=== PATIENT | female | born 1945 | race Asian ===

== ENCOUNTER 2024-08-12 11:13 | Emergency (ER) | payer MEDICARE, MEDICAID, SELFPAY ==
[2024-08-12 11:14] VITALS: BMI 21.2
[2024-08-12 11:25] VITALS: BP 133/62; PULSE 75; RESP 17; TEMP 36.7; O2SAT 99; BMI 23.3
--- NOTE | 2024-08-12 11:25 | PC.NURSE ---
Pt coming from the lobby with daughter; pt c/o R-sided numbness/pain that starts from R arm all the way down to her R foot. Per pt, only PMH is TIA 1 year ago and takes aspirin and allergy medication. Pt attached to monitors at this time.
--- NOTE | 2024-08-12 11:27 | PD.EDRME ---
Rapid Medical Screening Exam RME Arrival date/time: 08/12/24 11:13 79-year-old female presents to the emergency department with a 6-day history of right sided body pain and weakness. Sent over by her PCP for evaluation. I have greeted and performed a focused initial assessment of this patient. Initial appropriate labs ordered at this time. A comprehensive ED assessment and evaluation of the patient and analysis of all test and completion of medical decision making process will be conducted by additional ED provider. Chief Complaint: Neuro Symptoms/Deficit Time Seen by Provider: 08/12/24 11:27 Vital signs: Vital Signs Temperature 98.1 F 08/12/24 11:25 Pulse Rate 75 08/12/24 11:25 Respiratory Rate 17 08/12/24 11:25 Blood Pressure 133/62 H 08/12/24 11:25 Pulse Oximetry (%) 99 08/12/24 11:25 Oxygen Delivery Method Room Air 08/12/24 11:25
--- NOTE | 2024-08-12 11:33 | EKG_ITS ---
[facility] Test Date: 2024-08-12 Pat Name: EVAN ANTONIO Department: Room: - Gender: Female Steward/Stewardess Second Class: : 1945 Requested By: ED Temporary Provider Order Number: [id number] Reading MD: ED Temporary Provider Measurements Intervals [place] Rate: 75 P: 54 PA: 179 QRS: 42 QRSD: 88 T: 60 QT: 374 QTc: 418 Interpretive Statements SINUS RHYTHM No previous ECG available for comparison /store/S0/[id number]/[id number].pdf
--- NOTE | 2024-08-12 11:53 | XR_ITS ---
Examination: CT brain head without contrast. 2-D sagittal coronal reconstructions Date and time of exam:August 12, 2024 1304 hrs. Indications: Onset right-sided body weakness beginning 6 days ago CTDI: vol (mGy):46.7 DLP: (mGycm):922 Technique: Multiple CT axial sections of the brain have been obtained, 5 mm slice thickness. Contrast has not been administered. 2-D sagittal, coronal reconstructions have been obtained Low dose protocols were performed. One or more of the following dose reduction techniques were used; automated exposure control, adjustment of the mA and/or KV according to patient size, use of iterative reconstruction technique. Findings: No significant ventricular enlargement. Intra-axial or extra-axial hemorrhage density is not seen. No mass effect or midline shift Basal cisterns are not remarkable. Fourth ventricle is midline. Cranial vault intact. Impression: Negative for acute hemorrhage, mass effect or midline shift Advise clinical correlation follow-up accordingly
--- NOTE | 2024-08-12 11:53 | XR_ITS ---
Examination: AP chest single view Technique: AP portable sitting chest single view Exam date and time: August 12, 2024 1201 hrs. Comparison January 01, 2014 Indications: Onset chest pain today. Findings: Normal heart size Mild vascular congestion. No lobar pneumonia or pulmonary edema Impression: Mild vascular congestion
--- NOTE | 2024-08-12 11:55 | EDNOTE_ITS ---
Neuro Symptoms Deficit-RME/HPI General Chief Complaint: Neuro Symptoms/Deficit Stated Complaint: RIGHT SIDE OF BODY PAIN/NUMBNESS X6DAYS Time Seen by Provider: 08/12/24 11:27 Arrival date/time: 08/12/24 11:13 This is a 79-year-old female that is brought in by daughter with complaints of right sided body pain and numbness for the last 6 days. Per patient approximately 6 days ago she had a very severe headache and since then she has had numbness to the right side of her body and also right sided shoulder pain. Patient does not have focal deficits but states it is harder to move her right upper extremity and right lower extremity. She does admit to some hip pain in the past on that right side. Per patient daughter patient has a history of a TIA in the past. Patient also has issues with vertigo that are chronic per daughter. Patient has had eye surgeries but reports no other procedures. Patient denies runny nose, cough, sore throat, nausea, vomiting, diarrhea, and abdominal pain. RME / HPI RME / HPI Narrative: 08/12/24 11:13 79-year-old female presents to the emergency department with a 6-day history of right sided body pain and weakness. Sent over by her PCP for evaluation. I have greeted and performed a focused initial assessment of this patient. Initial appropriate labs ordered at this time. A comprehensive ED assessment and evaluation of the patient and analysis of all test and completion of medical decision making process will be conducted by additional ED provider. Related Data Previous Rx's ?Medication ?Instructions ?Recorded aspirin 325 mg tablet 81 mg (0.2492 x 325 mg) PO QDAY 01/03/14 #30 tabs Hydrocodone/Acetaminophen * (NORCO 1 tab PO Q6H PRN PAIN #12 tabs 04/24/17 5/325 *) Allergies Allergy/AdvReac Type Severity Reaction Status Date / Time meclizine Allergy Severe RASH Verified 08/12/24 17:45 Penicillins Allergy Severe Rash Verified 08/12/24 11:17 Review of Systems Review of Systems Systems Reviewed: All systems reviewed, normal except as documented Past Medical History Past Medical History Comments PMH COMMENT: see hpi ED Exam General General appearance: Present alert and in no apparent distress Head Head exam: Present atraumatic Eye Eye exam: Present normal appearance, PERRL and EOMI ENT ENT exam: Present normal exam, normal oropharynx and mucous membranes moist Neck Neck exam: Present normal inspection, full ROM and trachea midline Chest Chest inspection: Present normal inspection and symmetric chest wall rise Respiratory Respiratory exam: Present normal lung sounds bilaterally Cardiovascular Cardiovascular exam: Present regular rate, normal rhythm and normal heart sounds Abdominal Exam Abdominal exam: Present soft and other (nontender ) Extremities Exam Extremities exam: Present normal inspection and full ROM Back Exam Back exam: Present normal inspection and full ROM Neurological Exam Neurological exam: Present alert, oriented X3 and CN II-XII intact Psychiatric Psychiatric exam: Present normal affect and normal mood Skin Skin exam: Present warm, dry, intact and normal color Course Quality Measures none Orders Category Date Time Status EKG (ED ONLY) *Do not use* NOW Care 08/12/24 11:[address] head/brain wo con Stat Exams 08/12/24 11:53 Completed EKG (ED Only) Stat Exams 08/12/24 11:33 Draft XR chest 1V Stat Exams 08/12/24 11:53 Completed CBC Stat Lab 08/12/24 12:02 Completed Comprehensive Metabolic Panel Stat Lab 08/12/24 12:02 Completed PT [Prothrombin Time with INR] Stat Lab 08/12/24 12:02 Completed Troponin I Stat Lab 08/12/24 12:02 Completed Ketorolac Inj [Toradol Inj] Med 08/12/24 16:15 Discontinued 15 mg IVP X1 ONE Ketorolac Inj [Toradol Inj] Med 08/12/24 15:53 Discontinued 30 mg IM X1 ONE Metoclopramide Inj [Reglan Inj] Med 08/12/24 15:53 Discontinued 5 mg IM X1 ONE Metoclopramide Inj [Reglan Inj] Med 08/12/24 16:14 Discontinued 5 mg IVP X1 ONE Vital Signs Vital signs: Vital Signs Temperature 98.1 F 08/12/24 11:25 Pulse Rate 75 08/12/24 11:25 Respiratory Rate 17 08/12/24 11:25 Blood Pressure 133/62 H 08/12/24 11:25 Pulse Oximetry (%) 99 08/12/24 11:25 Oxygen Delivery Method Room Air 08/12/24 11:25 Procedures -ED EKG Interpretation #1: Date of EK08/12/24 Time of EK:44 Rate: 75 Interpretation: Interpreted by me (sinus rhythm ) EKG Impression: No ectopy, Normal QRS and Normal intervals Neuro Symptoms / Deficit MDM Narrative MDM Narrative:: This is a 79-year-old female that is brought in by daughter with complaints of right sided body pain and numbness for the last 6 days. Per patient approximately 6 days ago she had a very severe headache and since then she has had numbness to the right side of her body and also right sided shoulder pain. Patient does not have focal deficits but states it is harder to move her right upper extremity and right lower extremity. She does admit to some hip pain in the past on that right side. Per patient daughter patient has a history of a TIA in the past. Patient also has issues with vertigo that are chronic per daughter. Patient has had eye surgeries but reports no other procedures. Patient denies runny nose, cough, sore throat, nausea, vomiting, diarrhea, and abdominal pain. head ct: Findings: No significant ventricular enlargement. Intra-axial or extra-axial hemorrhage density is not seen. No mass effect or midline shift Basal cisterns are not remarkable. Fourth ventricle is midline. Cranial vault intact. Impression: Negative for acute hemorrhage, mass effect or midline shift Advise clinical correlation follow-up accordingly Chest x ray shows: Findings: Normal heart size Mild vascular congestion. No lobar pneumonia or pulmonary edema Impression: Mild vascular congestion Labs unremarkable. CT x ray unremarkable. Patient has no focal deficits. I gave her medication for pain and seems to have resolved pain. Discussed case with . Patient ok to go home at this time. Will have patient follow up with primary provider in 1-2 days. Come back to ED if symptoms change or worsen. Patient data External records reviewed:: [facility] previous records Clinical information provided by:: patient Social determinants that could affect healthcare access:: none Patient has the following chronic illnesses:: see hpi How is presenting disease/condition affected by chronic disease/condition?: uneffected by Evaluation data The following diagnostics were reviewed and interpreted by me:: lab results, radiology exam(s) and EKG tracing(s) Lab and/or radiology exams considered but not ordered:: none Interpretation Summary: see note Medications / Prescriptions Medications or Prescriptions considered but not ordered:: none Medication administrations:: Medication Administration History Discontinued Medications Ketorolac Tromethamine (Ketorolac Inj 60 Mg/2 Ml Vial) 30 mg IM X1 ONE Stop: 08/12/24 15:54 Last Admin: 08/12/24 16:14 Dose: Not Given Documented By: GM Non-Admin Reason: Cancelled by Provider Ketorolac Tromethamine (Ketorolac Inj 30 Mg/Ml Vial) 15 mg IVP X1 ONE Stop: 08/12/24 16:16 Last Admin: 08/12/24 16:21 Dose: 15 mg Documented By: RADHA Metoclopramide HCl (Metoclopramide Inj 5 Mg/Ml Vial 2 Ml) 5 mg IM X1 ONE; Protocol Stop: 08/12/24 15:54 Last Admin: 08/12/24 16:14 Dose: Not Given Documented By: RADHA Non-Admin Reason: Cancelled by Provider Metoclopramide HCl (Metoclopramide Inj 5 Mg/Ml Vial 2 Ml) 5 mg IVP X1 ONE; Protocol Stop: 08/12/24 16:15 Last Admin: 08/12/24 16:18 Dose: 5 mg Documented By: RADHA see mar Consultations Consultation(s) initiated? (list below): No Diagnosis Neuro Differential Diagnosis: subarachnoid hemorrhage, peripheral neuropathy, cerebrovascular accident, multiple sclerosis, transient cerebral ischemia and other (infection ) Most likely diagnosis given after review of the tests above:: arm pain Admission Indicated Admission indicated?: not indicated Admission Request Was there a request for admission?: No Disposition Plan Disposition Plan: Discharge Discharge Attestation Discharge Attestation: The patient and all family members were given an opportunity to ask questions and understood the discharge instructions. Discharge instructions specifically effects, indications for sooner follow up or return to the emergency department, and the expected course of current diagnosis. Patient condition: Stable Discharge Plan Plan Patient Disposition: HOME (Self Care) Patient condition on transfer: Stable Prescriptions/Referrals Prescriptions/Med Rec: No Action aspirin 325 MG tablet 81 mg PO QDAY Qty: 30 1RF Hydrocodone/Acetaminophen * (NORCO 5/325 *) 1 TAB tablet 1 tab PO Q6H PRN (Reason: PAIN) Qty: 12 0RF Referrals: Carlos Restrepo PA-C [Primary Care Provider] - In 1 week Problem List Clinical Impression: Leg pain, Arm pain, Headache Patient/Caregiver Discharge Instructions Discharge Activity: activity as tolerated Education Materials: Self-Care for Headaches Additional Instructions: Follow up with primary provider in 1-2 days. Come back to ED if symptoms change or worsen. Keep scheduled appointment with primary provider. Print Language: Tunisian Stand Alone Forms: Anai Award Info., Patient Portal Info Letter PA/PRODUCTION CONTROL SCHEDULER Supervising Physician PA/PRODUCTION CONTROL SCHEDULER Supervising Physician: [employer]
[2024-08-12 12:44] LABS: Basophils # (Auto) 0.1 Thou/mm3 (0.0-0.2); Basophils % (Auto) 1 % (0-2.5); Eosinophils # (Auto) 0.4 Thou/mm3 (0.0-0.5); Eosinophils % (Auto) 6 % (0-10); Hematocrit 35.4 % (36.0-46.0); Hemoglobin 11.2 g/dL (12.0-16.0); Immature Granulocytes % (Auto) 0 % (0-0); Immature Granulocytes Auto 0.02 Thou/mm3 (0.00-0.00); Lymphocytes # (Auto) 2.5 Thou/mm3 (1.0-4.8); Lymphocytes % (Auto) 34 % (10-50); Mean Corpuscular HGB Conc 31.6 g/dl (31.0-37.0); Mean Corpuscular Hemoglobin 21.1 pg (25.0-35.0); Mean Corpuscular Volume 67 fL (80-100); Monocytes # (Auto) 0.6 Thou/mm3 (0.0-0.8); Monocytes % (Auto) 8 % (0-12); Neutrophils # (Auto) 3.7 Thou/mm3 (1.8-7.7); Neutrophils % (Auto) 51 % (37-80); Nucleated Red Blood Cell % 0 /100 WBC (0); Platelet Count 165 Thou/mm3 (140-440); RDW Standard Deviation 34.5 fL (36.4-46.3); Red Blood Count 5.31 Miln/mm3 (4.00-5.20); White Blood Count 7.3 Thou/mm3 (3.6-11.0)
[2024-08-12 12:59] LABS: Prothrombin Time 10.8 Seconds (9.0-12.2)
[2024-08-12 13:00] VITALS: BP 138/62; PULSE 70; RESP 20; O2SAT 98
[2024-08-12 13:04] LABS: Alanine Aminotransferase 16 U/L (10-49); Albumin/Globulin Ratio 1.7 (1.2-2.2); Alkaline Phosphatase 108 U/L (46-116); Anion Gap 9 (7-16); Aspartate Amino Transferase 25 U/L (0-34); BUN/Creatinine Ratio 18 Ratio (12-20); Bilirubin,Total 0.6 mg/dL (0.3-1.2); Blood Urea Nitrogen 18 mg/dL (9-23); Calcium 9.3 mg/dL (8.3-10.6); Calcium (Corrected) 9.3 mg/dL (8.5-10.1); Carbon Dioxide 24.6 mMol/L (20.0-31.0); Chloride 105 mMol/L (98-107); Estimated Creatinine Clearance 36.7 mL/min (>60); Globulin 2.9 gm/dL (2.3-3.5); Glucose 131 mg/dL (74-106); Osmolality,Calculated 281 (275-295); Sodium 139 mMol/L (136-145); Total Protein 7.9 gm/dL (5.7-8.2); Troponin I < 0.020 ng/mL (0.0-0.045); eGFR 58 See Note
--- NOTE | 2024-08-12 14:06 | PRELIM_ITS ---
CT scan of the head without intravenous contrast (axial sections with sagittal and coronal reformats) August 12, 2024 at 1304 hours Clinical history: Neurological deficit. Comparison: No prior study i s available for comparison. Findings:There is no evidence of intracranial hemorrhage, mass effect or midline shift. There are periventricular white matter hypodensities, compatible with chronic small ve ssel ischemia. There is mild volume loss. The calvarium is unremarkable. The mastoid air cells and th e visualized paranasal sinuses are clear.Impression:No evidence of intracranial hemorrhage, mass effe ct or midline shift.Periventricular chronic small vessel ischemia and volume loss. Report Electronica lly Signed By: Keshawn Hardin 08/12/2024 2:05:47 PM [EST]
[2024-08-12 15:00] VITALS: BP 137/55; PULSE 74; RESP 15; TEMP 37; O2SAT 98
[2024-08-12] MEDS: METOCLOPRAMIDE INJ 5 MG/ML VIAL 2 ML IVP (16:18)
[2024-08-12] MEDS: KETOROLAC INJ 30 MG/ML VIAL 15 MG IVP (16:21)
[2024-08-12 17:00] VITALS: BP 120/58; PULSE 91; RESP 19; TEMP 36.9; O2SAT 98
[2024-08-12 18:13] VITALS: BP 128/61; PULSE 79; RESP 21; TEMP 36.6; O2SAT 96
== END 2024-08-12 18:30 | disposition home or self-care (01) ==
PROVIDERS: Nurse Practitioner Family; Emergency Provider Emergency Medicine
DX: R51.9 Headache, unspecified (principal); M79.603 Pain in arm, unspecified; M79.606 Pain in leg, unspecified; R09.89 Other specified symptoms and signs involving the circulatory and respiratory systems; R53.1 Weakness
CPT/HCPCS: 36415; 70450; 71045; 80053; 84484; 85025; 85610; 93005; 96374; 99284; J1885; J2765